=== PATIENT | female | born 1975 | race Caucasian/White ===

== ENCOUNTER → 2016-06-25 | Outpatient (CLI) | payer OTHER ==
--- NOTE | 2016-06-25 11:26 | MM ---
Reason for exam: additional evaluation requested from prior study. Last mammogram was performed 6 months ago. History: Patient is postmenopausal, has history of ovarian cancer at age 41, has history of high-risk lesion on a previous biopsy at age 36, and has history of other cancer at age 36. Benign US biopsy breast VAD RT of the right breast, June 02, 2015. Benign MG pre op needle loc RT of the right breast, August 02, 2014. High risk US biopsy breast VAD RT of the right breast, June 05, 2014. Benign US RT VAD breast biopsy of the right breast, May 04, 2013. High risk u/S right breast localization of the right breast, April 21, 2011. Excisional biopsy of the right breast, 2011. Cancelled US Left Aspiration of the left breast, May 23, 2008. Taking antineoplastic for 5 months. Physical Findings: Nurse Summary: 0.5cm nodule in the right breast at 10 o'clock and 12 o'clock (nurse dw). MG 3D Diag Mammo W/Cad DIANA Bilateral CC and MLO view(s) were taken. Prior study comparison: January 08, 2016, right breast MG 3d diag mammo w/cad RT. June 02, 2015, right breast MG diagnostic mammo RT wo CAD. The breast tissue is extremely dense which could obscure a lesion on mammography. Previous ultrasound biopsy in the right breast. No significant new findings when compared with previous films. These results were verbally communicated with the patient and result sheet given to the patient on 06/25/16. ASSESSMENT: Benign, BI-RAD 2 RECOMMENDATION: Routine screening mammogram of both breasts in 1 year.
--- NOTE | 2016-06-25 11:29 | USB ---
Reason for exam: follow-up at short interval from prior study. History: Patient is postmenopausal, has history of ovarian cancer at age 41, has history of high-risk lesion on a previous biopsy at age 36, and has history of other cancer at age 36. Benign US biopsy breast VAD RT of the right breast, June 02, 2015. Benign MG pre op needle loc RT of the right breast, August 02, 2014. High risk US biopsy breast VAD RT of the right breast, June 05, 2014. Benign US RT VAD breast biopsy of the right breast, May 04, 2013. High risk u/S right breast localization of the right breast, April 21, 2011. Excisional biopsy of the right breast, 2011. Cancelled US Left Aspiration of the left breast, May 23, 2008. Taking antineoplastic for 5 months. US Breast RT Right breast ultrasound includes all four quadrants, the retroareolar region and axilla. Finding demonstrate a 6 x 3 x 5mm oval, mixed lesion at palpable at 12 o'clock, a 4 x 3 x 3mm oval, cystic lesion at 1 o'clock, a 4 x 2 x 3mm oval, cystic lesion at 4 o'clock and a 5 x 4 x 7mm lobular, solid, hypoechoic, vascular lesion, adjacent vessel at palpable at 10 o'clock. These results were verbally communicated with the patient and result sheet given to the patient on 06/25/16. ASSESSMENT: Suspicious, BI-RAD 4 RECOMMENDATION: Ultrasound core biopsy of the right breast. Called with mammographic findings and has scheduled an appointment for the patient for 07/22/16 at 10:[address] Watters. Biopsy scheduled for 06/30/16 at 2:00. PRELIMINARY REPORT CALLED AND FAXED TO DR. WATTERS ON 06/25/16 AT 300/TP.
== END ==
LOC: RADMAMWWP 08:21
PROVIDERS: ATTEND Surgery
DX: R92.8 Other abnormal and inconclusive findings on diagnostic imaging of breast (principal)
CPT/HCPCS: 76641; G0204; G0279

== ENCOUNTER → 2016-06-30 | Day surgery (SDC) | payer OTHER ==
[~2016-06-30] MED LIST: LIDOCAINE 1% INJ 10MG/ML (20 ML MDV) ONE; SODIUM BICARB 4% 5 ML VIAL (0.48 MEQ/ML) ONE
--- NOTE | 2016-06-30 15:00 | USB ---
EXAMINATION TYPE: US biopsy breast VAD RT DATE OF EXAM: 06/30/2016 2:55 PM CLINICAL HISTORY: R92.8 ABN MAMMOGRAM. EXAMINATION TYPE: US biopsy breast VAD RT DATE OF EXAM: 06/30/2016 2:55 PM COMPARISON: Right breast ultrasound 25 June 2016 HISTORY: Palpable right breast mass. FINDINGS: Maximal barrier technique was utilized. Ultrasound used with sterile technique. The skin overlying a suitable path to the patient's right breast mass at approximately 10:00 of the right breast was localized with ultrasound and the overlying skin was prepped and draped. Lidocaine used for local anesthesia and a skin jose made with a scalpel. Vacuum-assisted core biopsy device was advanced under direct ultrasound guidance to the level of the breast mass and core specimens were obtained. Clip was deployed at the level of the mass. Post procedure mammogram performed shows the clip at the level of the breast mass. Following the procedure hemostasis achieved. The patient remained in stable condition without complication. Breast cores submitted in formalin. IMPRESSION: Status post successful ultrasound-guided vacuum-assisted core breast biopsy, pathology pending. This procedure performed by the undersigned. Pathology Results: Benign BREAST, RIGHT, CORE BIOPSY: FIBROCYSTIC CHANGES INCLUDING FIBROSIS, CYSTS AND APOCRINE METAPLASIA. Recommendation Follow up ultrasound of the right breast in 6 months. KIRK
--- NOTE | 2016-06-30 15:58 | MM ---
Diagnostic right mammogram HISTORY: Status post ultrasound-guided vacuum-assisted core biopsy Correlation to patient's ultrasound breast biopsy June Correlation to prior mammogram May 2 digital mammographic views obtained of the right breast. Second metallic clip has been placed in th e interval at approximately 9-10:00 position of the right breast. IMPRESSION: Status post breast biopsy, pathology pending
== END | disposition home or self-care (01) ==
LOC: RADUSWWP 13:50
PROVIDERS: ATTEND Surgery
DX: R92.8 Other abnormal and inconclusive findings on diagnostic imaging of breast (principal); N60.31 Fibrosclerosis of right breast; N60.81 Other benign mammary dysplasias of right breast; N64.89 Other specified disorders of breast; Z88.5 Allergy status to narcotic agent; Z88.8 Allergy status to other drugs, medicaments and biological substances
CPT/HCPCS: 88305; 19083; G0206; A4648; J2001

== ENCOUNTER → 2016-08-05 | Outpatient (CLI) | payer OTHER ==
--- NOTE | 2016-08-05 22:18 | US ---
EXAMINATION TYPE: US abdomen complete DATE OF EXAM: 08/05/2016 3:19 PM COMPARISON: NONE CLINICAL HISTORY: 41-year-old female with RUQ Abdominal Pain R10.11. Right rib pain with N&V. TECHNIQUE: Multiple sonographic images of the abdomen are obtained. FINDINGS: Liver Length: 14.5 cm Gallbladder Wall: 0.2 cm CBD: 0.4 cm Spleen: 8.8 cm Right Kidney: 10.7 x 4.9 x 3.5 cm Left Kidney: 9.4 x 3.5 x 5.1 cm Pancreas: wnl Liver: Homogeneous echotexture without focal lesion. Gallbladder: No abnormal gallbladder distention, wall thickening, pericholecystic fluid, or shadowin g calculi. Evidence for sonographic Recinos's sign: no CBD: Within normal limits Spleen: Normal size. Right Kidney: No hydronephrosis Left Kidney: No hydronephrosis Upper IVC: wnl Abd Aorta: No evidence for AAA. IMPRESSION: Unremarkable sonographic examination of the abdomen.
== END | disposition home or self-care (01) ==
LOC: RADUSWWP 14:45
PROVIDERS: ATTEND Surgery
DX: R10.11 Right upper quadrant pain (principal)
CPT/HCPCS: 76700

== ENCOUNTER → 2017-01-13 | Outpatient (CLI) | payer OTHER ==
--- NOTE | 2017-01-13 08:42 | MM ---
Reason for exam: follow-up at short interval from prior study. Last mammogram was performed 6 months ago. History: Patient is postmenopausal, has history of high-risk lesion on a previous biopsy at age 36, and has history of other cancer at age 36. Benign US biopsy breast VAD RT of the right breast, June 30, 2016. Benign US biopsy breast VAD RT of the right breast, June 02, 2015. Benign MG pre op needle loc RT of the right breast, August 02, 2014. High risk US biopsy breast VAD RT of the right breast, June 05, 2014. Benign US RT VAD breast biopsy of the right breast, May 04, 2013. High risk u/S right breast localization of the right breast, April 21, 2011. Excisional biopsy of the right breast, 2011. Cancelled US Left Aspiration of the left breast, May 23, 2008. Taking antineoplastic for 5 months. Physical Findings: Nurse Summary: less than 0.5cm nodule in the right breast at 12 o'clock (nurse kp). MG 3D Diag Mammo W/Cad RT CC and MLO view(s) were taken of the right breast. Prior study comparison: June 30, 2016, right breast MG diagnostic mammo RT wo CAD. June 25, 2016, bilateral MG 3d diag mammo w/cad DIANA. June 25, 2016, right breast US breast RT. May 27, 2015, bilateral MG 3d diag mammo w/cad DIANA. January 27, 2015, right breast MG 3d diag mammo w/cad RT. May 24, 2014, bilateral MG diagnostic mammo w CAD DIANA. The breast tissue is heterogeneously dense. This may lower the sensitivity of mammography. Previous mammotome biopsy in the right breast x 2. Palpable marker again placed superiorly. No significant new findings when compared with previous films. These results were verbally communicated with the patient and result sheet given to the patient on 01/13/17. ASSESSMENT: Incomplete: need additional imaging evaluation, BI-RAD 0 RECOMMENDATION: Ultrasound of the right breast. (as ordered) KIRK
--- NOTE | 2017-01-13 08:52 | USB ---
Reason for exam: follow-up at short interval from prior study. History: Patient is postmenopausal, has history of high-risk lesion on a previous biopsy at age 36, and has history of other cancer at age 36. Benign US biopsy breast VAD RT of the right breast, June 30, 2016. Benign US biopsy breast VAD RT of the right breast, June 02, 2015. Benign MG pre op needle loc RT of the right breast, August 02, 2014. High risk US biopsy breast VAD RT of the right breast, June 05, 2014. Benign US RT VAD breast biopsy of the right breast, May 04, 2013. High risk u/S right breast localization of the right breast, April 21, 2011. Excisional biopsy of the right breast, 2011. Cancelled US Left Aspiration of the left breast, May 23, 2008. Taking antineoplastic for 5 months. US Breast RT Right breast ultrasound includes all four quadrants, the retroareolar region and axilla. Finding demonstrates a 0.5 x 0.5 x 0.5cm mixed lesion at 12 o'clock versus 6 x 3 x 5mm on 06/25/16 this suggests a benign etiology, a 0.9 x 0.3 x 0.3cm cystic lesion at 6 o'clock possibly ectatic ducts, and a 0.5 x 0.2 x 0.5cm lesion at 10 o'clock versus 5 x 4 x 7mm previously biopsied, this is at the palpable site. These results were verbally communicated with the patient and result sheet given to the patient on 01/13/17. ASSESSMENT: Benign, BI-RAD 2 RECOMMENDATION: Routine screening mammogram of both breasts in 6 months. [facility] for June 2017. [facility]
== END ==
LOC: RADMAMWWP 07:38
PROVIDERS: ATTEND Surgery
DX: R92.8 Other abnormal and inconclusive findings on diagnostic imaging of breast (principal)
CPT/HCPCS: 76641; G0206; G0279

== ENCOUNTER → 2017-07-22 | Outpatient (CLI) | payer OTHER ==
--- NOTE | 2017-07-26 09:56 | MM ---
Reason for exam: screening (asymptomatic). Last mammogram was performed 6 months ago. History: Patient is postmenopausal, has history of high-risk lesion on a previous biopsy at age 36, and has history of other cancer at age 36. Benign US biopsy breast VAD RT of the right breast, June 30, 2016. Benign US biopsy breast VAD RT of the right breast, June 02, 2015. Benign MG pre op needle loc RT of the right breast, August 02, 2014. High risk US biopsy breast VAD RT of the right breast, June 05, 2014. Benign US RT VAD breast biopsy of the right breast, May 04, 2013. High risk u/S right breast localization of the right breast, April 21, 2011. Excisional biopsy of the right breast, 2011. Cancelled US Left Aspiration of the left breast, May 23, 2008. Taking antineoplastic for 5 months. Physical Findings: A clinical breast exam by your physician is recommended on an annual basis and results should be correlated with mammographic findings. MG 3D Screening Mammo W/Cad Bilateral CC and MLO view(s) were taken. Prior study comparison: January 13, 2017, right breast MG 3d diag mammo w/cad RT. June 30, 2016, right breast MG diagnostic mammo RT wo CAD. The breast tissue is extremely dense which could obscure a lesion on mammography. Finding: There are typically benign round calcifications in the left breast. Previous mammotome biopsy in the right breast x 2. There is no discrete abnormality. ASSESSMENT: Benign, BI-RAD 2 RECOMMENDATION: Routine screening mammogram of both breasts in 1 year.
== END | disposition home or self-care (01) ==
LOC: RADMAMWWP 10:50
PROVIDERS: ATTEND Surgery
DX: Z12.31 Encounter for screening mammogram for malignant neoplasm of breast (principal)
CPT/HCPCS: 77063; 77067

== ENCOUNTER → 2018-06-01 | Outpatient (CLI) | payer OTHER ==
--- NOTE | 2018-06-01 13:23 | MM ---
Reason for exam: clinical finding. Last mammogram was performed 10 months ago. History: Patient is postmenopausal, has history of high-risk lesion on a previous biopsy at age 36, and has history of other cancer at age 36. Benign US biopsy breast VAD RT of the right breast, June 30, 2016. Benign US biopsy breast VAD RT of the right breast, June 02, 2015. Benign MG pre op needle loc RT of the right breast, August 02, 2014. High risk US biopsy breast VAD RT of the right breast, June 05, 2014. Benign US RT VAD breast biopsy of the right breast, May 04, 2013. High risk u/S right breast localization of the right breast, April 21, 2011. Excisional biopsy of the right breast, 2011. Cancelled US Left Aspiration of the left breast, May 23, 2008. Taking antineoplastic for 5 months. Physical Findings: Nurse Summary: 0.5cm nodule in the right breast at 12 o'clock (nurse kp). MG 3D Diag Mammo W/Cad DIANA Bilateral CC and MLO view(s) were taken. Prior study comparison: July 22, 2017, bilateral MG 3d screening mammo w/cad. January 13, 2017, right breast MG 3d diag mammo w/cad RT. The breast tissue is heterogeneously dense. This may lower the sensitivity of mammography. 10 o'clock right breast nodularity with 2 biopsy clips. Areas of asymmetric density do not show a clear persisting abnormality. 12 o'clock palpable marker. These results were verbally communicated with the patient and result sheet given to the patient on 06/01/18. ASSESSMENT: Incomplete: need additional imaging evaluation, BI-RAD 0 RECOMMENDATION: Ultrasound of both breasts. (particular attention to 12 o'clock right palpable)
--- NOTE | 2018-06-01 13:44 | USB ---
Reason for exam: additional evaluation requested from abnormal screening. History: Patient is postmenopausal, has history of high-risk lesion on a previous biopsy at age 36, and has history of other cancer at age 36. Benign US biopsy breast VAD RT of the right breast, June 30, 2016. Benign US biopsy breast VAD RT of the right breast, June 02, 2015. Benign MG pre op needle loc RT of the right breast, August 02, 2014. High risk US biopsy breast VAD RT of the right breast, June 05, 2014. Benign US RT VAD breast biopsy of the right breast, May 04, 2013. High risk u/S right breast localization of the right breast, April 21, 2011. Excisional biopsy of the right breast, 2011. Cancelled US Left Aspiration of the left breast, May 23, 2008. Taking antineoplastic for 5 months. US Breast BILAT Right complete breast ultrasound includes all four quadrants, the retroareolar region and axilla. Finding demonstrates a 0.4 x 0.3 x 0.5cm palpable, cystic lesion at 12 o'clock with internal nodule, this was present previously, on 06/25/16 it measured 6 x 3 x 5mm, a 0.6 x 0.2 x 0.5cm cystic lesion at 4 o'clock, a 0.6 x 0.4 x 0.6cm and 0.6 x 0.3 x 0.6cm mixed lesion at 10 o'clock, stable from 01/23/17, one of which was previously biopsied. Left complete breast ultrasound includes all four quadrants, the retroareolar region and axilla. Finding demonstrates a 0.3 x 0.2 x 0.3cm lesion too small to characterize at 8 o'clock for which a 6 month follow up is recommended, a 0.5 x 0.3 x 0.4cm cystic lesion at 10 o'clock and a 0.3 x 0.3 x 0.3cm lesion too small to characterize at 10 o'clock. These results were verbally communicated with the patient and result sheet given to the patient on 06/01/18. ASSESSMENT: Probably benign, BI-RAD 3 RECOMMENDATION: Ultrasound of the left breast in 6 months. (attention small 8 o'clock lesion)
== END | disposition home or self-care (01) ==
LOC: RADMAMWWP 10:46
PROVIDERS: ATTEND Obstetrics & Gynecology
DX: N63.11 Unspecified lump in the right breast, upper outer quadrant (principal); R92.8 Other abnormal and inconclusive findings on diagnostic imaging of breast
CPT/HCPCS: 77066; 76641; G0279; 77062

== ENCOUNTER → 2018-12-20 | Outpatient (CLI) | payer OTHER ==
--- NOTE | 2018-12-21 09:01 | USB ---
Reason for exam: follow-up at short interval from prior study. History: Patient is postmenopausal, has history of high-risk lesion on a previous biopsy at age 36, and has history of other cancer at age 36. Benign US biopsy breast VAD RT of the right breast, June 30, 2016. Benign US biopsy breast VAD RT of the right breast, June 02, 2015. Benign MG pre op needle loc RT of the right breast, August 02, 2014. High risk US biopsy breast VAD RT of the right breast, June 05, 2014. Benign US RT VAD breast biopsy of the right breast, May 04, 2013. High risk u/S right breast localization of the right breast, April 21, 2011. Excisional biopsy of the right breast, 2011. Cancelled US Left Aspiration of the left breast, May 23, 2008. Taking antineoplastic for 5 months. Physical Findings: Nurse Summary: bilateral nodularity (nurse cw). US Breast Limited LT Left limited breast ultrasound including focal area of concern, retroareolar and axilla demonstrates a 3 x 2 x 3mm oval, cystic lesion at 8 o'clock prior measured 3 x 2 x 3mm, currently appears more cystic, a 5mm oval lymph node at the axilla tail and ductal ectasia at the posterior nipple. These results were verbally communicated with the patient and result sheet given to the patient on 12/20/18. ASSESSMENT: Benign, BI-RAD 2 RECOMMENDATION: Routine screening mammogram of both breasts in 5 months. Back on schedule for May 2019.
== END | disposition home or self-care (01) ==
LOC: RADUSWWP 14:57
PROVIDERS: ATTEND Obstetrics & Gynecology
DX: R92.8 Other abnormal and inconclusive findings on diagnostic imaging of breast (principal)

== ENCOUNTER → 2020-06-03 | Outpatient (CLI) | payer OTHER ==
--- NOTE | 2020-06-04 09:45 | MM ---
Reason for exam: screening (asymptomatic). Last mammogram was performed 2 years ago. History: Patient is postmenopausal, has history of high-risk lesion on a previous biopsy at age 36, and has history of other cancer at age 36. Benign US biopsy breast VAD RT of the right breast, June 30, 2016. Benign US biopsy breast VAD RT of the right breast, June 02, 2015. Benign MG pre op needle loc RT of the right breast, August 02, 2014. High risk US biopsy breast VAD RT of the right breast, June 05, 2014. Benign US RT VAD breast biopsy of the right breast, May 04, 2013. High risk u/S right breast localization of the right breast, April 21, 2011. Excisional biopsy of the right breast, 2011. Cancelled US Left Aspiration of the left breast, May 23, 2008. Taking antineoplastic for 5 months. Physical Findings: A clinical breast exam by your physician is recommended on an annual basis and results should be correlated with mammographic findings. MG Screening Mammo w CAD Bilateral CC and MLO view(s) were taken. Prior study comparison: June 01, 2018, bilateral MG 3d diag mammo w/cad DIANA. June 25, 2016, bilateral MG 3d diag mammo w/cad DIANA. The breast tissue is extremely dense which could obscure a lesion on mammography. Previous mammotome biopsy in the right breast x 2. There is no discrete abnormality. These results were verbally communicated with the patient and result sheet given to the patient on 06/03/20. ASSESSMENT: Incomplete: need additional imaging evaluation, BI-RAD 0 RECOMMENDATION: Ultrasound of the left breast.
--- NOTE | 2020-06-04 09:47 | USB ---
Reason for exam: additional evaluation requested from abnormal screening. History: Patient is postmenopausal, has history of high-risk lesion on a previous biopsy at age 36, and has history of other cancer at age 36. Benign US biopsy breast VAD RT of the right breast, June 30, 2016. Benign US biopsy breast VAD RT of the right breast, June 02, 2015. Benign MG pre op needle loc RT of the right breast, August 02, 2014. High risk US biopsy breast VAD RT of the right breast, June 05, 2014. Benign US RT VAD breast biopsy of the right breast, May 04, 2013. High risk u/S right breast localization of the right breast, April 21, 2011. Excisional biopsy of the right breast, 2011. Cancelled US Left Aspiration of the left breast, May 23, 2008. Taking antineoplastic for 5 months. Physical Findings: Nurse Summary: 1cm movable lesion in the left breast at 3 o'clock (nurse dw). US Breast Workup Limited LT Left limited breast ultrasound including focal area of concern, retroareolar and axilla demonstrates a 5 x 2 x 6mm oval, cystic lesion at 1 o'clock and a 4 x 4 x 5mm oval, cystic lesion at 3 o'clock BB. Tiny thin walled cysts. These results were verbally communicated with the patient and result sheet given to the patient on 06/03/20. ASSESSMENT: Benign, BI-RAD 2 RECOMMENDATION: Return to routine screening mammogram schedule for both breasts. Manage on a clinical basis with regard to left palpable.
== END | disposition home or self-care (01) ==
LOC: RADMAMWWP 15:00
PROVIDERS: ATTEND Obstetrics & Gynecology
DX: Z12.31 Encounter for screening mammogram for malignant neoplasm of breast (principal); R92.8 Other abnormal and inconclusive findings on diagnostic imaging of breast
CPT/HCPCS: 77067

== ENCOUNTER → 2021-05-14 | Outpatient (CLI) | payer OTHER ==
--- NOTE | 2021-05-15 08:51 | MM ---
Reason for exam: clinical finding. Last mammogram was performed 11 months ago. History: Patient is postmenopausal, has history of high-risk lesion on a previous biopsy at age 36, and has history of other cancer at age 36. Benign US biopsy breast VAD RT of the right breast, June 30, 2016. Benign US biopsy breast VAD RT of the right breast, June 02, 2015. Benign MG pre op needle loc RT of the right breast, August 02, 2014. High risk US biopsy breast VAD RT of the right breast, June 05, 2014. Benign US RT VAD breast biopsy of the right breast, May 04, 2013. High risk u/S right breast localization of the right breast, April 21, 2011. Excisional biopsy of the right breast, 2011. Cancelled US Left Aspiration of the left breast, May 23, 2008. Taking antineoplastic for 5 months. Physical Findings: Nurse did not find any significant physical abnormalities on exam. MG Diagnostic Mammo w CAD DIANA Bilateral CC and MLO view(s) were taken. LM view(s) were taken of the left breast. Prior study comparison: June 03, 2020, bilateral MG screening mammo w CAD. June 01, 2018, bilateral MG 3d diag mammo w/cad DIANA. Previous mammotome biopsy in the right breast x 2. Patient palpable area right upper outer quadrant. Stable superior asymmetric density right breast and periareolar region. Stable round asymmetric density superior posterior left breast. These results were verbally communicated with the patient and result sheet given to the patient on 05/14/21. ASSESSMENT: Incomplete: need additional imaging evaluation, BI-RAD 0 RECOMMENDATION: Ultrasound of the right breast.
--- NOTE | 2021-05-15 08:55 | USB ---
Reason for exam: additional evaluation requested from abnormal screening. History: Patient is postmenopausal, has history of high-risk lesion on a previous biopsy at age 36, and has history of other cancer at age 36. Benign US biopsy breast VAD RT of the right breast, June 30, 2016. Benign US biopsy breast VAD RT of the right breast, June 02, 2015. Benign MG pre op needle loc RT of the right breast, August 02, 2014. High risk US biopsy breast VAD RT of the right breast, June 05, 2014. Benign US RT VAD breast biopsy of the right breast, May 04, 2013. High risk u/S right breast localization of the right breast, April 21, 2011. Excisional biopsy of the right breast, 2011. Cancelled US Left Aspiration of the left breast, May 23, 2008. Taking antineoplastic for 5 months. US Breast RT Technologist: Brook Leone Right complete breast ultrasound includes all four quadrants, the retroareolar region and axilla. Finding demonstrates a 1.7 x 1.3 x 0.6cm cystic, benign lesion at 2 o'clock, a 0.6 x 0.5 x 0.4cm probable cyst cluster at 2 o'clock, 6 month follow up, a 0.6 x 0.5 x 0.5cm probable cyst cluster at 11 o'clock, 6 month follow up recommended, a 0.7 x 0.6 x 0.4cm probable cyst cluster at 11 o'clock, 6 month follow up recommended and a 0.7 x 0.4 x 0.2cm palpable possible lymph node around area of concern at 10 o'clock, 6 month follow up recommended. These results were verbally communicated with the patient and result sheet given to the patient on 05/14/21. ASSESSMENT: Probably benign, BI-RAD 3 RECOMMENDATION: Ultrasound of the right breast in 6 months.
== END | disposition home or self-care (01) ==
LOC: RADMAMWWP 12:59
PROVIDERS: ATTEND Obstetrics & Gynecology
DX: N63.0 Unspecified lump in unspecified breast (principal); Z78.0 Asymptomatic menopausal state
CPT/HCPCS: 77066

== ENCOUNTER → 2021-07-24 | Outpatient (CLI) | payer OTHER ==
[2021-07-24 11:27] VITALS: BP 122/72; PULSE 76; RESP 18; TEMP 98
--- NOTE | 2021-07-24 12:45 | P.GSHP ---
History of Present Illness H&P Date: 07/24/21 Chief Complaint: abnormal right breast ultrasound Nesha is a 46 year old white female seen in consultation for Sr. Acevedo regarding an abnormal right breast ultrasound. She complains of a feeling of fullness in her right breast in the upper outer quadrant. She has had a papilloma, and radial scar removed from her right breast via an open biopsy in the past. She had a third open biopsy but unsure of hte pathology. She had also had an open biopsy of the left side as well. The patient took tamoxifen for approximately 6 months secondary to high risk breast lesions but stopped at that time. She had a bilateral mammogram on 05-14-21 after which an ultrasound of hte right breast was recommended. The ultrasound was done on 05-14-21 and felt to have multiple cyst and a possible lymph node in her right breast. She was recommended to have a repeat ultrasound in 6 months. Caffeine: pop daily nicotine: 1/2 PPD; smoked for 25 years BCP: prior to hysterectomy for 6 years; hysterectomy at 36 for endometriosis, and one ovary removed hormones: none Family History: unknown grew up in foster care Hormonal History: menarche: 14 G6M2P4, breast fed: yes, age at first : 21 menopause: hysterectomy at 36 hormones: none BCP: 6 years in past Surgical history: Hysterectomy wisdom teeth NOVASURE Leep procedure cataract surgery Medical History: glaucoma Peripheral neuropathy Celiac disease back pain anxiety Social History: nicotine: 1/2 PPD alcohol: none drugs: none - Constitutional Constitutional: Reports sweats - EENT Eyes: bilateral as per HPI Ears: bilateral: tinnitus, deny: decreased hearing Ears, nose, mouth and throat: Reports headache - Breasts Breasts: bilateral: as per HPI - Cardiovascular Cardiovascular: Denies chest pain, Denies shortness of breath - Respiratory Respiratory: Reports cough - Gastrointestinal Comment: IBS Gastrointestinal: Reports abdominal pain, Reports diarrhea, Reports nausea, Reports vomiting - Genitourinary (Female) Comment: Interstitial cystitis of the bladder - Menstruation Menstruation: Reports post hysterectomy - Musculoskeletal Musculoskeletal: Reports myalgias - Integumentary Integumentary: Reports pruritus - Neurological Comment: drop foot - Psychiatric Psychiatric: Reports anxiety - Endocrine Endocrine: Reports fatigue - Hematologic/Lymphatic Comment: none - Allergic/Immunologic Allergic/Immunologic: Reports as per HPI Past Medical History Past Medical History: GERD/Reflux, Hypertension Additional Past Medical History / Comment(s): IBS,INTERSTITIAL CYSTITIS,HEMORRHOIDS,ABNORMAL MAMMOGRAM AND ABN CORE GUIDED NEEDLE BX RT SIDE, SWOLLEN LYMPH NODE BEHIND LT EAR AND NECK History of Any Multi-Drug Resistant Organisms: None Reported Past Surgical History: Hysterectomy, Tubal Ligation, Uterine Ablation Additional Past Surgical History / Comment(s): BREAST BX,WISDOM TEETH,LEEP PROC, LAPAROSCOPIC PROCEDURES Past Anesthesia/Blood Transfusion Reactions: No Reported Reaction Additional Past Anesthesia/Blood Transfusion Reaction / Comment(s): UNKNOWN FAMILY HX Past Psychological History: Anxiety, Depression Smoking Status: Current every day smoker Past Alcohol Use History: None Reported Additional Past Alcohol Use History / Comment(s): STARTED SMOKING AT AGE 18 Past Drug Use History: None Reported - Past Family History Father Additional Family Medical History / Comment(s): UNK HX Mother Additional Family Medical History / Comment(s): UNK HX Medications and Allergies Home Medications Medication Instructions Recorded Confirmed Type Hydrocodone/Acetaminophen [[place] 1 - 2 each PO Q4HR PRN #30 tab 08/02/14 07/24/21 Rx 5-325] Ascorbic Acid [Vitamin C] 500 mg PO DAILY 07/24/21 07/24/21 History Cholecalciferol [Vitamin D3 (25 25 mcg PO DAILY 07/24/21 07/24/21 History Mcg = 1000 Iu)] Cyanocobalamin (Vitamin B-12) 1,000 mcg PO DAILY 07/24/21 07/24/21 History [Vitamin B-12] Dorzolamide/Timolol/Pf 1 drop BOTH EYES BID 07/24/21 07/24/21 History [Dorzolamide 2%-Timolol 0.5%] Ergocalciferol [Vitamin D2 (1250 1,250 mcg PO WEEKLY 07/24/21 07/24/21 History Mcg = 44929 Iu)] L.acidoph,Paracasei, B.lactis 1 each PO DAILY 07/24/21 07/24/21 History [Probiotic] [place]-3 Fatty Acids/Fish Oil [Fish 1 each PO DAILY 07/24/21 07/24/21 History Oil 1,000 mg Softgel] clonazePAM 1 mg PO BID 07/24/21 07/24/21 History Allergies Allergy/AdvReac Type Severity Reaction Status Date / Time gabapentin [From Neurontin] Allergy Rash/Hives Verified 07/24/21 11:18 morphine Allergy Rash/Hives Verified 07/24/21 11:18 Surgical - Exam Vital Signs Temp Pulse Resp BP Pulse Ox 98.0 F 76 18 122/72 100 07/24/21 11:23 07/24/21 11:23 07/24/21 11:23 07/24/21 11:23 07/24/21 11:23 BMI 19.3 - General moderate distress - Eyes normal ocular movement - Neck trachea midline - Respiratory normal respiratory effort, clear to auscultation - Cardiovascular Heart Sounds: normal: S1, S2 - Integumentary normal turgor - Psychiatric oriented to time, oriented to person, oriented to place, speech is normal, memory intact Breast Exam: Breaset Exam:32B inspection: Bilateral incisions from prior surgery, bilateral grade 2 ptosis Palpation: Right breast: Multi-positional exam fibrocystic changes no discrete dominant masses or nodules of concern Right axilla: No adenopathy of concern Left breast: Multiple positional exam fibrocystic changes no discrete dominant masses or nodules of concern Left axilla: No adenopathy of concern Results Mammogram and ultrasound results reviewed Assessment and Plan Assessment: Impression: Fibrocystic breast changes Prior resection of radial scar in papilloma from right breast no evidence of disease which would warrant interventional biopsy in either breast at this time Recent bilateral mammogram and right breast ultrasound in May 2021 recommendation for repeat right breast ultrasound in 6 months Plan: Right breast ultrasound 6 months with position exam at that time CC: Dr. Rossi
== END ==
LOC: WWCWWP 11:06
PROVIDERS: ATTEND Surgery
DX: N60.11 Diffuse cystic mastopathy of right breast (principal); F17.210 Nicotine dependence, cigarettes, uncomplicated; I10 Essential (primary) hypertension; F41.9 Anxiety disorder, unspecified; F32.A Depression, unspecified; Z98.890 Other specified postprocedural states; Z88.8 Allergy status to other drugs, medicaments and biological substances; Z88.5 Allergy status to narcotic agent

== ENCOUNTER 2021-11-09 13:07 | Day surgery (SDC) | payer OTHER ==
[~2021-11-09 13:07] MED LIST changes: -LIDOCAINE 1% INJ 10MG/ML (20 ML MDV) ONE; -SODIUM BICARB 4% 5 ML VIAL (0.48 MEQ/ML) ONE; +SODIUM CHLORIDE 0.9% 1,000 ML IV SCH
[2021-11-09 13:58] VITALS: BP 142/74; PULSE 74; RESP 18; TEMP 98.3
--- NOTE | 2021-11-09 19:01 | CA ---
Transthoracic Echo Report Name: Nesha Frazier Age: 46 Gender: F : 1975 Exam Date: 11/09/2021 15:10 Exam Location: [facility] Ht (in): 65 Wt (lb): 115 Ordering Physician: Aly Hess MD ([id number]) Attending/Referring Phys: Driver/Merchandiser Beryl Hernandez RDCS Procedure CPT: Indications: cardiomyopathy Cardiac Hx: Technical Quality: Fair Contrast 1: Total Dose (mL): Contrast 2: Total Dose (mL): MEASUREMENTS (Male / Female) Normal Values 2D ECHO LV Diastolic Diameter PLAX 3.8 cm 4.2 - 5.9 / 3.9 - 5.3 cm LV Systolic Diameter PLAX 2.8 cm IVS Diastolic Thickness 1.0 cm 0.6 - 1.0 / 0.6 - 0.9 cm LVPW Diastolic Thickness 1.0 cm 0.6 - 1.0 / 0.6 - 0.9 cm LV Relative Wall Thickness 0.5 RV Internal Dim ED PLAX 2.9 cm LA Volume 30.9 cm??? 18 - 58 / 22 - 52 cm??? M-MODE Aortic Root Diameter MM 2.9 cm LA Systolic Diameter MM 3.5 cm LA Ao Ratio MM 1.2 AV Cusp Separation MM 2.2 cm DOPPLER AV Peak Velocity 130.2 cm/s AV Peak Gradient 6.8 mmHg LVOT Peak Velocity 98.2 cm/s LVOT Peak Gradient 3.9 mmHg MV Area PHT 3.0 cm??? Mitral E Point Velocity 121.6 cm/s Mitral A Point Velocity 71.5 cm/s Mitral E to A Ratio 1.7 MV Deceleration Time 254.6 ms TR Peak Velocity 197.0 cm/s TR Peak Gradient 15.5 mmHg Right Ventricular Systolic Press 20.5 mmHg FINDINGS Left Ventricle Mildly increased left ventricular wall thickness. Normal left ventricular systolic function with no obvious regional wall motion abnormalities. Left ventricular ejection fraction is estimated at 55-60normal left ventricular diastolic filling pattern. %. Right Ventricle Normal right ventricular size and function. Right ventricular systolic pressure within normal limits. Right Atrium Normal right atrial size. Left Atrium Normal left atrial size. No evidence for an atrial septal defect. Mitral Valve Structurally normal mitral valve. No mitral stenosis, regurgitation or prolapse. Aortic Valve No aortic valve stenosis or regurgitation. Tricuspid Valve Structurally normal tricuspid valve. Mild tricuspid regurgitation. Pulmonic Valve Trace pulmonic regurgitation. Pericardium No pericardial effusion. Aorta Normal size aortic root and proximal ascending aorta. CONCLUSIONS Left ventricular hypertrophy with preserved systolic function Dilated IVC Previewed by: Dr. Aly Hess MD (Electronically Signed) Final Date: 09 November 2021 19:01
--- NOTE | 2021-11-11 10:39 | P.EPPROC ---
- EP Procedure Note Electrophysiology Procedure Note: Diagnosis Recurrent syncope Twelve-lead EKG shows sinus mechanism normal MA narrow QRS normal ST segments Normal QT interval No delta waves, no epsilon waves, normal ST segments Tilt table test per protocol Baseline blood pressure 130/74 mmHg, pulse rate 60 beats a minute Patient was tilted upright at night over 70 per protocol No change in heart rate and blood pressure No symptoms noted She was laid supine at the end of the procedure Impression Normal 12 lead EKG Normal heart rate and blood pressure response to upright tilting
== END 2021-11-09 15:28 | disposition home or self-care (01) ==
LOC: CATHEP 13:07
PROVIDERS: ATTEND Internal Medicine Clinical Cardiac Electrophysiology
DX: I42.2 Other hypertrophic cardiomyopathy (principal); R55 Syncope and collapse; I25.10 Atherosclerotic heart disease of native coronary artery without angina pectoris; J45.909 Unspecified asthma, uncomplicated; H40.20X0 Unspecified primary angle-closure glaucoma, stage unspecified; K90.0 Celiac disease; M79.7 Fibromyalgia; Z20.822 Contact with and (suspected) exposure to COVID-19; Z79.899 Other long term (current) drug therapy; Z88.5 Allergy status to narcotic agent; Z88.8 Allergy status to other drugs, medicaments and biological substances
CPT/HCPCS: 84703; 87635; 93306; 93660

== ENCOUNTER 2021-12-28 11:52 | Day surgery (SDC) | payer OTHER ==
[2021-12-25 10:28] VITALS: BMI 18.9
[~2021-12-28 11:52] MED LIST changes: +ALPRAZolam 0.25 MG TAB PO PRN; +ALPRAZolam 0.5 MG TAB PO PRN; +ASPIRIN 325 MG TAB PO PRN; +HEPARIN SODIUM,PORCINE 10,000 UNIT in SODIUM CHLORIDE 0.9% 1,000 ML IRRIGATION PRN; +HEPARIN SODIUM,PORCINE 2,500 UNIT in SODIUM CHLORIDE 0.9% 250 ML IRRIGATION PRN; -SODIUM CHLORIDE 0.9% 1,000 ML IV SCH; +SODIUM CHLORIDE 0.9% 1,000 ML in EMPTY BAG 1 BAG IV ONE; +ZOLPIDEM 5 MG TAB PO PRN
[2021-12-28] MEDS ORDERED: SODIUM CHLORIDE 0.9% 500 ML 1,000 ML IV ONE (12:19)
[2021-12-28 12:48] LABS: Basophils % (A) 1 %; Eosinophils % (A) 1 %; HCT 43.4 % (34.0-46.0); Lymphocytes # (A) 2.1 k/uL (1.0-4.8); Lymphocytes % (A) 35 %; MCH 34.8 pg (25.0-35.0); MCHC 34.5 g/dL (31.0-37.0); MCV 100.8 fL (80.0-100.0); Mean Platelet Volume 7.9; Monocytes # (A) 0.3 k/uL (0-1.0); Monocytes % (A) 5 %; Neutrophils # (A) 3.5 k/uL (1.3-7.7); Neutrophils % (A) 57 %; Platelet Count 285 k/uL (150-450); RDW 12.5 % (11.5-15.5); WBC 6.1 k/uL (3.8-10.6)
[2021-12-28 13:12] LABS: African American GFR (CKD) >90 (>60 ml/min/1.73 sqM); Anion Gap 14 mmol/L; Blood Urea Nitrogen 12 mg/dL (7-17); Calcium 9.9 mg/dL (8.4-10.2); Carbon Dioxide 17 mmol/L (22-30); Chloride 107 mmol/L (98-107); Glucose 109 mg/dL (74-99); Non-African American GFR(CKD) >90 (>60 ml/min/1.73 sqM); Potassium 4.3 mmol/L (3.5-5.1); Sodium 138 mmol/L (137-145)
[2021-12-28] MEDS ORDERED: fentaNYL (PF) 50 MCG/ML 2 ML AMP ONE (13:39)
[2021-12-28] MEDS ORDERED: fentaNYL (PF) 50 MCG/ML 2 ML AMP IV ONE (13:41)
[2021-12-28] MEDS ORDERED: MIDAZOLAM 2 MG/2 ML VIAL IV ONE ×2 (13:41→14:00)
[2021-12-28] MEDS ORDERED: LIDOCAINE 1% INJ 10MG/ML (30 ML VIAL-PF) SQ ONE (13:44)
[2021-12-28] MEDS ORDERED: HEPARIN SODIUM 1,000 UN/ML (10ML VL) ONE (14:08)
[2021-12-28] MEDS: HEPARIN SODIUM 1,000 UN/ML (10ML VL) IV ONE ×2 (14:10→14:28)
[2021-12-28] MEDS ORDERED: ONDANSETRON 4 MG/2 ML VIAL ONE (15:35)
[2021-12-28] MEDS ORDERED: ONDANSETRON 4 MG/2 ML VIAL IVP ONE (15:45)
[2021-12-28] MEDS ORDERED: IOPAMIDOL-250 100ML BTL INTRAARTER ONE ×2 (15:54→15:56)
[2021-12-28] MEDS ORDERED: HYDROmorphone 0.5 MG/0.5 ML SYRINGE IVP ONE (16:14)
[2021-12-28] MEDS ORDERED: HYDROmorphone 0.5 MG/0.5 ML SYRINGE IVP PRN (16:16)
--- NOTE | 2021-12-28 16:16 | P.OP ---
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 Ultrasound guided bilateral femoral artery access 2. Aortagram with selective bilateral iliac angiograms 3. Intravascular ultrasound of the aorta, bilateral common iliac and external iliac arteries 4. PTBA of bilateral common iliac artery 5. PTBA of right external iliac artery 6. Percutaneous transluminal stenting of the right common iliac artery with 7x39mm Omnilink balloon expandable stent 7. Percutaneous transluminal stenting of the left common iliac artery with 7x37mm Visipro balloon expandable stent 8. Percutaneous transluminal stenting of the right external iliac artery with 8x40mm Everflex self expandable stent 9. Percutaneous closure of bilateral femoral arteries with Vascade device 10. Conscious sedation x 111 minutes Anesthesia: local Surgeon: Chun García Estimated Blood Loss (ml): 10 IV fluids (ml): 1,000 Pathology: none sent Condition: stable Disposition: floor Indications for Procedure: 46 year old female with history of bilateral lower extremity pain, chronic back pain who has been treated with back injections, pain medication for 5 years without improvement. Upon evaluation in the office patient stated the inability to walk without severe pain as well as pain in her lower extremities at night. She had dopplers that demonstrated OMEGA of .51 on the right and .65 on the left. She then had a CTA which demonstrated occlusion of the right common iliac artery with stenosis of the left. She presents today for endovascular stenting of the iliac arteries. She also complains of abdominal pain with eating and noted to have stenosis of the celiac and sma which we will evaluate today as well. Operative Findings: Aorta: Patent suprarenal aorta with infrarenal stenosis just above the iliac bifurcation. Large collateral vessels noted at the distal aorta. Celiac artery: difficult to visualize, mild stenosis noted at the takeoff SMA: Possible occlusion at the takeoff with reconstitution distally. PEYMAN: large with retrograde filling to the SMA Iliacs: Right common iliac occlusion just at the internal takeoff. Left common iliac artery stenosis >70-80%. Right external iliac artery with dissection and haziness after angioplasty just at the bifurcation. Femorals: Patent common, SFA and profunda takeoff bilaterally. Description of Procedure: After written and informed consent was obtained from the patient and all risks, benefits, and complications were described the patient was brought to the laborer chicken farm and laid in a supine position. The area of the groins were prepped and draped in the usual fashion. Timeout was performed in usual fashion. Using ultrasound the left common femoral artery was located and shown to be patent, with minimal posterior plaque. The common femoral artery was accessed with a micro puncture needle and utilizing Seldinger technique a 5F sheath was then placed. An 035 glidewire was then directed into the aorta followed by a pigtail catheter. Aortogram was obtained with multiple angles to view the celiac, sma, peyman and iliac arteries. Once completed the right common iliac was shown to be occluded with reconstitution at the external iliac artery bifurcation. Attention was then placed to the right femoral artery access. Using ultrasound the right common femoral artery was located, was patent with some posterior p laque noted. Using Seldinger technique a 6F sheath was placed and an 035 glidewire and crossing catheter were used to try and cross the occlusion without success. The patient was administered heparin and followed with ACTs for appropriate heparinization above 200. A glidewire was placed up the left femoral sheath and the sheath was removed and replaced with a directional [place]ino 6.5F sheath. The directional sheath was then used to cross the lesion in an antegrade fashion. Using an 035 glidewire and crossing catheter the lesion was crossed and selective right iliac angiogram was obtained d emonstrating good intraluminal crossing. A snare catheter was then placed up the right femoral sheath and the wire from the left femoral sheath was grasped and pulled out the right femoral sheath in a body floss technique. The crossing catheter was then withdrawn and guided over the wire from the right sheath into the aorta across the lesion. Aortogram was obtained demonstrating good intraluminal access. Balloon angioplasty was then performed on both common iliac arteries at the bifurcation with 5x40mm balloons. Angiogram was taken with some improvement of the lumen on the right common iliac artery. Intravascular ultrasound was then chosen to determine size of potential stent. The 035 guidewires were then exchanged for 014 wires bilaterally and IVUS catheter was placed into the aorta and measurements were obtained of the aorta, right common iliac, external iliac arteries. Once completed the IVUS catheter was placed up the left femoral sheath and measurements were taken of the left common iliac and external iliac arteries. There was some residual thrombus and stenosis noted on the left common iliac as well as the right extending to the bifurcation. It was determined to placed 7x39mm balloon expandable stent on the right and a 7x37mm balloon expandable stent on the left in a kissing fashion. The 014 wires were replaced with 035 glidewires in usual fashion and stents were placed in a kissing fashion at the bifurcation. Once completed angiogram was again obtained demonstrating improved flow to the bilateral common iliac arteries but some residual stenosis/occlusion noted on the right extending to the bifurcation. An 8x40mm self expanding stent was then chosen and placed with 2mm overlap with the previous stent and final angiogram was taken demonstrating brisk flow through the stent without residual stenosis. All guidewires and catheters were then removed. The long sheath was replaced with a 7F sheath and both groin access sites were closed with Vascade closure device in usual fashion. Once completed there was palpable pulses in bilateral groins but during holding pressure patient had a vasovagal response and blood pressure dropped. She was given fluid bolus with improvement of her pressures to the low 100's. She had pulses in bilateral posterior tibial arteries and was sent to recovery in stable condition. She will be admitted for pain control and monitoring overnight.
[2021-12-28] MEDS ORDERED: HYDROcodone/APAP 7.5-325MG 1 EACH TAB PO PRN (16:18)
[2021-12-28] MEDS: CLOPIDOGREL 75 MG TAB PO SCH (17:28)
[2021-12-28] MEDS: SODIUM CHLORIDE 0.9% 1,000 ML IV SCH (17:28)
[2021-12-28] MEDS: clonazePAM 0.5 MG TAB PO SCH (20:53)
[2021-12-28 23:28] VITALS: RESP 16
[2021-12-29] MEDS: CLOPIDOGREL 75 MG TAB PO SCH (07:57)
--- NOTE | 2021-12-29 07:58 | IR ---
Fluoroscopy HISTORY: Pain in leg 7.3 minutes fluoroscopy time supplied to the referring clinician. 308 intraoperative C-arm images do cument the procedure. See dictated report from vascular surgery.
[2021-12-29] MEDS: SODIUM CHLORIDE 0.9% 1,000 ML IV SCH (07:59)
[2021-12-29] MEDS: clonazePAM 0.5 MG TAB PO SCH (07:59)
[2021-12-29] MEDS ORDERED: CALCIUM CARBONATE 500 MG CHEWABLE PO PRN (08:52)
[2021-12-29 09:02] LABS: HCT 37.1 % (34.0-46.0); HGB 12.2 gm/dL (11.4-16.0); MCH 34.1 pg (25.0-35.0); MCV 103.3 fL (80.0-100.0); Macrocytosis Slight; Mean Platelet Volume 7.7; Platelet Count 219 k/uL (150-450); RBC 3.59 m/uL (3.80-5.40); WBC 6.4 k/uL (3.8-10.6)
[2021-12-29 09:04] VITALS: BP 120/82; PULSE 75; TEMP 98.4
--- NOTE | 2021-12-29 09:07 | P.DS ---
Providers Expected date of discharge: 12/29/21 Attending physician: Chun García DO Primary care physician: Darian Nicholas [facility] Course: This is a 46-year-old female was been following vascular surgery for claudication. She is a current smoker smoking up to 2 packs a day. She had lower extremity arterial Dopplers demonstrating OMEGA of 0.51 on the right and 0.65 on the left with poor flow noted bilateral common femoral arteries. The patient then had a CTA which demonstrated occlusion of the right common iliac artery with stenosis of the left. She presented yesterday for outpatient endovascular stenting of the iliac arteries. Patient was going to be discharged home after procedure however had a vasovagal response and was admitted to observation overnight. She is postop day #1 for endovascular stenting of the right common iliac artery, and right external iliac artery and left common iliac artery with percutaneous closure bilateral femoral arteries with vascular device. She's been up and ambulating, voiding without difficulty. She is eating and tolerating regular diet. She is complaining of pain in the right groin more than the left. States right groin is a little more significant. There is no hematoma or bruising noted. Bilateral lower extremities with good strength and tone, sensation intact. Palpable bilateral femoral, popliteal, bounding posterior tibialis pulses, and palpable dorsalis pedis pulses. Right is faintly palpable. Good capillary refill, warm to the touch. She is afebrile. No complaints of shortness of breath or chest pain. Assessment: 1. Postop day #1. Percutaneous transluminal stenting of the right common iliac artery, left common iliac artery, and right external iliac artery 2. Bilateral lower extremity pain, limb ischemia Gladbrook classification 4 3. Right common iliac artery occlusion 4. Left common iliac artery stenosis >70-80% 5. 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 Tobacco abuse Plan: Encourage ambulation Smoking cessation Discussed with patient no heavy lifting, strenuous activity until cleared by vascular surgeon. No driving for the next 2-3 days. No showering until tomorrow, no tub bathing or soaking until cleared by vascular surgeon. Patient to take Plavix daily. Follow-up with Dr. García as scheduled in 1-2 weeks The impression and plan of care has been dictated as directed. I performed a history and examination of this patient, discussed the same with the dictator. I agree with the dictator's note ,documented as a scribe. Any additional findings or plans will be noted. 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 Ultrasound guided bilateral femoral artery access 2. Aortagram with selective bilateral iliac angiograms 3. Intravascular ultrasound of the aorta, bilateral common iliac and external iliac arteries 4. PTBA of bilateral common iliac artery 5. PTBA of right external iliac artery 6. Percutaneous transluminal stenting of the right common iliac artery with 7x39mm Omnilink balloon expandable stent 7. Percutaneous transluminal stenting of the left common iliac artery with 7x37mm Visipro balloon expandable stent 8. Percutaneous transluminal stenting of the right external iliac artery with 8x40mm Everflex self expandable stent 9. Percutaneous closure of bilateral femoral arteries with Vascade device 10. Conscious sedation x 111 minutes Patient Condition at Discharge: Stable Plan - Discharge Summary Discharge Rx Participant: Yes New Discharge Prescriptions: New Clopidogrel [Plavix] 75 mg PO DAILY #90 tab Continue clonazePAM 0.5 mg PO BID Hydrocodone/Acetaminophen [Hydrocodone/Acetaminophen 7.5-325] 1 each PO QID PRN PRN Reason: Pain Discharge Medication List clonazePAM 0.5 mg PO BID 07/24/21 [History] Hydrocodone/Acetaminophen [Hydrocodone/Acetaminophen 7.5-325] 1 each PO QID PRN 11/09/21 [History] Clopidogrel [Plavix] 75 mg PO DAILY #90 tab 12/29/21 [Rx] Follow up Appointment(s)/Referral(s): Chun García DO [STAFF PHYSICIAN] - 01/12/22 2:30 pm (Jan AT 2:30 PM FOR FOLLOW UP APPOINTMENT ) Patient Instructions/Handouts: Peripheral Vascular Disease (DC), Moderate Sedation (DC), Peripheral Vascular Angioplasty (DC) Activity/Diet/Wound Care/Special Instructions: No strenuous activity or heavy lifting greater than 5-10 pounds until cleared by vascular surgeon May shower starting tomorrow 12/30/2021 No soaking or tub baths Monitor access sites for bleeding, hematoma, drainage. If having bleeding, apply pressure call vascular office or go to the emergency room. Monitor for infection, temperature greater than 100.4. Do not drive for 24-48 hours Discharge Disposition: HOME SELF-CARE
[2021-12-29 09:11] LABS: African American GFR (CKD) >90 (>60 ml/min/1.73 sqM); Anion Gap 7 mmol/L; Blood Urea Nitrogen 9 mg/dL (7-17); Calcium 8.5 mg/dL (8.4-10.2); Carbon Dioxide 25 mmol/L (22-30); Chloride 106 mmol/L (98-107); Glucose 106 mg/dL (74-99); Non-African American GFR(CKD) >90 (>60 ml/min/1.73 sqM); Potassium 4.2 mmol/L (3.5-5.1); Sodium 138 mmol/L (137-145)
== END 2021-12-29 09:55 | disposition home or self-care (01) ==
LOC: CATHCVL 11:52 → 6NMEDSUR 15:32 → CATHCVL 12-29 09:55
PROVIDERS: ATTEND Surgery
DX: I70.213 Atherosclerosis of native arteries of extremities with intermittent claudication, bilateral legs (principal); G89.29 Other chronic pain; M54.9 Dorsalgia, unspecified; F31.9 Bipolar disorder, unspecified; F17.210 Nicotine dependence, cigarettes, uncomplicated; F41.9 Anxiety disorder, unspecified; J45.909 Unspecified asthma, uncomplicated; N32.89 Other specified disorders of bladder; Z87.898 Personal history of other specified conditions; Z90.710 Acquired absence of both cervix and uterus; Z98.42 Cataract extraction status, left eye; H40.9 Unspecified glaucoma; H91.90 Unspecified hearing loss, unspecified ear; I10 Essential (primary) hypertension; I49.9 Cardiac arrhythmia, unspecified; K44.9 Diaphragmatic hernia without obstruction or gangrene; Z98.890 Other specified postprocedural states; Z87.442 Personal history of urinary calculi; G62.9 Polyneuropathy, unspecified; H93.19 Tinnitus, unspecified ear; I83.90 Asymptomatic varicose veins of unspecified lower extremity; Z85.828 Personal history of other malignant neoplasm of skin; Z87.19 Personal history of other diseases of the digestive system; Z79.899 Other long term (current) drug therapy; Z88.5 Allergy status to narcotic agent; Z88.8 Allergy status to other drugs, medicaments and biological substances
CPT/HCPCS: 37221; 37222; 37223; 75625; 75716; 37252; 37253; 80048 ×2; 85025; 85027; C1894 ×4; C1769 ×6; C1773; C1876 ×3; C1887; C1725; C1760; J2250; J2405; J2001; J3010; J1644; J1170; Q9966; 36200

== ENCOUNTER → 2021-12-30 | Outpatient (CLI) | payer OTHER ==
[2021-12-30 23:31] LABS: Basophils # (A) 0.04 X 10*3/uL (0.00-0.10); Basophils % (A) 0.4 %; Eosinophils # (A) 0.04 X 10*3/uL (0.04-0.35); Eosinophils % (A) 0.4 %; HGB 11.6 g/dL (12.0-15.0); Immature Grans, Automated 0.2 %; Lymphocytes # (A) 2.83 X 10*3/uL (0.90-5.00); MCH 33.6 pg (27.0-32.0); MCHC 33.1 g/dL (32.0-37.0); MCV 101.4 fL (80.0-97.0); Monocytes # (A) 0.81 X 10*3/uL (0.20-1.00); Monocytes % (A) 8.9 %; NRBC Per 100 WBC 0 /100 WBCS (0.0-0.0); Neutrophils % (A) 59.1 %; Platelet Count 231 X 10*3/uL (140-440); RBC 3.45 X 10*6/uL (4.10-5.20); RDW 12.4 % (11.5-14.5); WBC 9.14 X 10*3/uL (4.50-10.00)
== END | disposition home or self-care (01) ==
LOC: LABWHC1 15:33
PROVIDERS: ATTEND Surgery
DX: R10.9 Unspecified abdominal pain (principal)
CPT/HCPCS: 36415; 85025

== ENCOUNTER → 2022-02-03 | Outpatient (CLI) | payer OTHER ==
--- NOTE | 2022-02-03 15:21 | USB ---
Reason for Exam: Follow-up at short interval from prior study. Patient History: Menarche at age 14. First Full-Term at age 21. Right ovary removed at age 36. Hysterectomy at age 36. Postmenopausal. Other cancer, age 36. 2011, Excisional Biopsy on the Right side. 06/30/2016, Benign Core Biopsy on the right side. 06/02/2015, Benign Core Biopsy on the right side. 08/02/2014, Benign Core Biopsy on the right side. 06/05/2014, High risk Core Biopsy on the right side. 05/04/2013, Benign Core Biopsy on the right side. 04/21/2011, High risk Excisional Biopsy on the right side. 05/23/2008, Cancelled US Left Aspiration on the left side. Risk Values: Lily 5 year model risk: 1.9%. NCI Lifetime model risk: 13.4%. Technique: Method: Whole Breast Handheld. Prior Study Comparison: 06/01/2018 Bilateral Diagnostic Mammogram, [facility]. 06/03/2020 Bilateral Screening Mammogram, [facility]. 05/14/2021 Bilateral Diagnostic Mammogram, [facility]. Findings: The whole breast of the right breast, the axilla of the right breast and the retroareolar of the right breast were scanned. Benign-appearing cysts along the chest wall in the right 2:00 position 2 cm from the nipple. Small cystic clusters likely are also present. Smaller pulmonary centimeters from the nipple o'clock position right breast appears to be present. Overall Assessment: Benign, BI-RAD 2 Management: Screening Mammogram of both breasts in 6 months. A clinical breast exam by your physician is recommended on an annual basis and results should be correlated with mammographic findings. This exam should not preclude additional follow-up of suspicious palpable abnormalities. ??Results were given to the patient verbally at the time of exam. Electronically signed and approved by: Adam Hunt D.O. Radiologis
== END | disposition home or self-care (01) ==
LOC: RADUSWWP 14:20
PROVIDERS: ATTEND Surgery
DX: R92.8 Other abnormal and inconclusive findings on diagnostic imaging of breast (principal); Z78.0 Asymptomatic menopausal state; Z90.721 Acquired absence of ovaries, unilateral

== ENCOUNTER 2022-02-16 06:55 | Emergency (ER) | payer OTHER ==
--- NOTE | 2022-02-16 08:03 | XR ---
EXAMINATION TYPE: XR ankle complete LT DATE OF EXAM: 02/16/2022 COMPARISON: NONE HISTORY: Pain FINDINGS: Three views of the ankle demonstrate the ankle mortise to be intact and symmetric. The joint spaces are preserved. The osseous structures are intact. IMPRESSION: 1. No definite acute fracture or dislocation, if symptoms persist follow-up study in 7 to 10 days wou ld be suggested.
--- NOTE | 2022-02-16 08:15 | ED ---
Lower Extremity Injury HPI - General Chief Complaint: Extremity Injury, Lower Stated Complaint: [facility] LT ankle injury Time Seen by Provider: 02/16/22 07:03 Source: patient, RN notes reviewed Mode of arrival: ambulatory Limitations: no limitations - History of Present Illness Initial Comments: This a 46-year-old female presents emergency Department chief complaint left ankle injury. Patient states that she struck her left ankle on we[place] base of a car. Patient states that there is bruising, swelling states is very uncomfortable ambulating. Patient states his happened at work was advised to be seen. Patient denies any other complaints. - Related Data Home Medications Medication Instructions Recorded Confirmed clonazePAM 0.5 mg PO BID 07/24/21 12/28/21 Hydrocodone/Acetaminophen 1 each PO QID PRN 11/09/21 12/28/21 [Hydrocodone/Acetaminophen 7.5-325] Previous Rx's Medication Instructions Recorded Clopidogrel [Plavix] 75 mg PO DAILY #90 tab 12/29/21 Allergies Allergy/AdvReac Type Severity Reaction Status Date / Time gabapentin [From Neurontin] Allergy Rash/Hives Verified 02/16/22 07:05 morphine Allergy Rash/Hives Verified 02/16/22 07:05 ibuprofen [From Motrin] AdvReac Unknown Verified 02/16/22 07:06 pentosan polysulfate sodium AdvReac Unknown Verified 02/16/22 07:05 [From [place]] Review of Systems ROS Statement: Those systems with pertinent positive or pertinent negative responses have been documented in the HPI. ROS Other: All systems not noted in ROS Statement are negative. Past Medical History Past Medical History: Cancer, Eye Disorder, GERD/Reflux, Hypertension Additional Past Medical History / Comment(s): IBS, INTERSTITIAL CYSTITIS, HEMORRHOIDS, ABNORMAL MAMMOGRAM AND ABNORMAL CORE GUIDED NEEDLE BIOPSY RIGHT SIDE, SWOLLEN LYMPH NODE BEHIND LEFT EAR AND NECK, GLAUCOMA, RIGHT CATARACT, "IRREGULAR EKG". "Need to be careful with medications that affect glaucoma". Hypertension resolved, now has issues with low blood pressure. History of Any Multi-Drug Resistant Organisms: None Reported Past Surgical History: Heart Catheterization, Hysterectomy, Tubal Ligation, Uterine Ablation Additional Past Surgical History / Comment(s): bRight breast biopsy, wisdom teeth extracted, LEEP procedure, LAPAROSCOPIC PROCEDURES, lymph node and 3 high risk right breast tumors removed, left eye catartact removed, left eye laser surgery X3, skin cancer removed from left lower neck by hairline. Past Anesthesia/Blood Transfusion Reactions: No Reported Reaction Additional Past Anesthesia/Blood Transfusion Reaction / Comment(s): UNKNOWN FAMILY HX. (grew up in foster care). Past Psychological History: Anxiety, Depression Smoking Status: Current every day smoker Past Alcohol Use History: None Reported Past Drug Use History: Marijuana - Past Family History Father History Unknown: Yes Additional Family Medical History / Comment(s): UNK HX Mother History Unknown: Yes Additional Family Medical History / Comment(s): UNK HX General Exam Limitations: no limitations General appearance: alert, in no apparent distress Head exam: Present: atraumatic, normocephalic, normal inspection Eye exam: Present: normal appearance, PERRL, EOMI. Absent: scleral icterus, conjunctival injection, periorbital swelling Neck exam: Present: normal inspection, full ROM. Absent: tenderness, meningismus, lymphadenopathy Respiratory exam: Present: normal lung sounds bilaterally. Absent: respiratory distress, wheezes, rales, rhonchi, stridor Cardiovascular Exam: Present: regular rate, normal rhythm, normal heart sounds. Absent: systolic murmur, diastolic murmur, rubs, gallop, clicks Extremities exam: Present: other (Left ankle lateral malleoli region there is swelling, ecchymosis noted, neurovascular intact there is no bony tenderness there is tenderness anteriorly of the malleolus) Course Vital Signs 02/16/22 07:01 Temperature 98.4 F Pulse Rate 88 Respiratory 18 Rate Blood Pressure 120/78 O2 Sat by Pulse 100 Oximetry Medical Decision Making - Medical Decision Making X-ray reviewed and read by radiologist shows no acute fracture. Patient has left ankle contusion will be discharged in stable condition return parameters were discussed. Disposition Clinical Impression: Contusion of left ankle Disposition: HOME SELF-CARE Condition: Stable Instructions (If sedation given, give patient instructions): Contusion in Adults (ED) Additional Instructions: Please return to the Emergency Department if symptoms worsen or any other co ncerns. Is patient prescribed a controlled substance at d/c from ED?: No Referrals: Darian Rossi MD [Primary Care Provider] - 1-2 days Time of Disposition: 08:14
[2022-02-16 08:47] VITALS: BP 128/79; PULSE 78; RESP 16; TEMP 98
== END 2022-02-16 08:46 | disposition home or self-care (01) ==
LOC: EC 06:55
DX: S90.02XA Contusion of left ankle, initial encounter (principal); K21.9 Gastro-esophageal reflux disease without esophagitis; I10 Essential (primary) hypertension; F41.9 Anxiety disorder, unspecified; F32.A Depression, unspecified; F17.200 Nicotine dependence, unspecified, uncomplicated; F12.90 Cannabis use, unspecified, uncomplicated; Z88.1 Allergy status to other antibiotic agents; Z88.6 Allergy status to analgesic agent; Z79.899 Other long term (current) drug therapy; W22.8XXA Striking against or struck by other objects, initial encounter
CPT/HCPCS: 99283